=== PATIENT | female | born 1935 | race Caucasian/White ===

== ENCOUNTER 2018-08-19 07:07 | Emergency (ER) ==
[2018-08-19] MEDS ORDERED: TORADOL IM STA (07:24)
[2018-08-19 07:26] VITALS: BP 165/75; TEMP 97.7; BMI 27.6
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
[2018-08-19] MEDS ORDERED: PERCOCET 5-325 PO STA (08:48)
== END 2018-08-19 09:15 | disposition home or self-care (01) ==
LOC: ED 07:07
DX: R07.89 Other chest pain (principal); M54.2 Cervicalgia; S20.211A Contusion of right front wall of thorax, initial encounter; R51 Headache; V89.2XXA Person injured in unspecified motor-vehicle accident, traffic, initial encounter; I25.2 Old myocardial infarction; I10 Essential (primary) hypertension; E78.5 Hyperlipidemia, unspecified; R22.0 Localized swelling, mass and lump, head
CPT/HCPCS: 36415; 80053; 82550; 84484; 85025; 93005; 93010; 96372; 99283